=== PATIENT | female | born 1990 | race Caucasian/White ===

== ENCOUNTER 2018-04-07 23:31 | Emergency (ER) | payer OTHER ==
[~2018-04-07] VITALS: Ht 157.5 cm; Wt 45.5 kg
[2018-04-08 00:29] LABS: BASOPHILS % (AUTO) 0.7 % (0.0-2.0); EOSINOPHILS % (AUTO) 1.8 % (1.0-6.0); HEMATOCRIT 39.1 % (36-46); HEMOGLOBIN 13.2 g/dL (12.0-16.0); LYMPHOCYTES # (AUTO) 3.7 K/uL (1.0-4.8); LYMPHOCYTES % (AUTO) 33.1 % (22.0-44.0); MEAN CORPUSCULAR HGB CONC 33.7 G/dL (31.0-37.0); MEAN CORPUSCULAR VOLUME 86 fL (80-100); MONOCYTES # (AUTO) 0.9 K/uL (0.1-1.0); MONOCYTES % (AUTO) 7.7 % (2.0-9.0); NEUTROPHILS # (AUTO) 6.4 K/uL (1.8-7.7); NEUTROPHILS % (AUTO) 56.7 % (40.0-70.0); PLATELET COUNT (AUTO) 299 K/uL (150-450); RED BLOOD CELL COUNT(AUTO) 4.55 MIL/uL (4.00-5.20); RED CELL DISTRIBUTION WIDTH 13.1 % (11.5-14.5)
[2018-04-08 00:34] LABS: AMPHET/METH SCREEN,URINE NEGATIVE (NEGATIVE); BARBITURATE SCREEN, URINE NEGATIVE (NEGATIVE); BENZODIAZEPINES SCREEN,URINE NEGATIVE (NEGATIVE); CANNABINOID SCREEN,URINE NEGATIVE (NEGATIVE); COCAINE SCREEN,URINE NEGATIVE (NEGATIVE); METHADONE SCREEN, URINE NEGATIVE (NEGATIVE); OPIATE SCREEN,URINE NEGATIVE (NEGATIVE)
[2018-04-08 00:35] LABS: PHENCYCLIDINE SCREEN,URINE NEGATIVE (NEGATIVE)
[2018-04-08] MEDS ORDERED: HYDR-4031 PO (00:35)
[2018-04-08 00:36] LABS: ANION GAP 10 mmol/L (8-16); CALCIUM, TOTAL 8.8 mg/dL (8.8-10.5); CARBON DIOXIDE 27 mmol/L (22-29); CHLORIDE 101 mmol/L (98-107); CREATININE 0.69 mg/dL (0.60-1.30); GLOMERULAR FILTR. RATE CALC > 60 mL/min (>60); GLUCOSE,RANDOM 99 mg/dL (70-110); POTASSIUM 3.5 mmol/L (3.5-5.1); SODIUM SERUM 138 mmol/L (136-145); UREA NITROGEN, BLOOD 14 mg/dL (7-18)
[2018-04-08] MEDS ORDERED: SERT50TA12 PO (00:36)
[2018-04-08 00:42] LABS: ALANINE AMINOTRANSFERASE 18 U/L (12-78); ALBUMIN 4.1 g/dL (3.4-5.0); ALKALINE PHOSPHATASE 91 U/L (46-116); ASPARTATE AMINOTRANSFERASE 16 U/L (15-37); BILIRUBIN,TOTAL 0.3 mg/dL (0.1-1.0); TOTAL PROTEIN, SERUM 8.2 g/dL (6.4-8.2)
[2018-04-08] MEDS ORDERED: LORazepam 2 MG TABLET PO ONE (01:45)
[2018-04-08 02:30] VITALS: BP 117/68
== END 2018-04-08 02:50 | disposition home or self-care (01) ==
LOC: EMS 23:32
DX: Z72.811 Adult antisocial behavior (principal); R45.4 Irritability and anger; F32.9 Major depressive disorder, single episode, unspecified; Z79.899 Other long term (current) drug therapy
CPT/HCPCS: 36415; 80053; 80307; 84703; 85025; 99285; G0480

== ENCOUNTER 2019-05-03 19:37 | Inpatient (IN) | payer MEDICAID, OTHER ==
[~2019-05-03] VITALS: Ht 157.5 cm; Wt 45.9 kg
[~2019-05-03 19:37] MED LIST: HYDR-4031 PO; SERT50TA12 PO
[2019-05-03 21:40] LABS: BASOPHILS % (AUTO) 0.9 % (0.0-2.0); EOSINOPHILS % (AUTO) 0.9 % (1.0-6.0); HEMOGLOBIN 12.5 g/dL (12.0-16.0); LYMPHOCYTES # (AUTO) 3.8 K/uL (1.0-4.8); LYMPHOCYTES % (AUTO) 37.1 % (22.0-44.0); MEAN CORPUSCULAR HEMOGLOBIN 28.3 pg (26.0-34.0); MEAN CORPUSCULAR HGB CONC 32.8 G/dL (31.0-37.0); MEAN CORPUSCULAR VOLUME 86 fL (80-100); MONOCYTES # (AUTO) 0.7 K/uL (0.1-1.0); MONOCYTES % (AUTO) 6.8 % (2.0-9.0); NEUTROPHILS # (AUTO) 5.6 K/uL (1.8-7.7); NEUTROPHILS % (AUTO) 54.3 % (40.0-70.0); PLATELET COUNT (AUTO) 307 K/uL (150-450); RED BLOOD CELL COUNT(AUTO) 4.41 MIL/uL (4.00-5.20); RED CELL DISTRIBUTION WIDTH 13.7 % (11.5-14.5)
[2019-05-03 21:51] LABS: ANION GAP 10 mmol/L (8-16); CARBON DIOXIDE 26 mmol/L (22-29); CHLORIDE 103 mmol/L (98-107); CREATININE 0.61 mg/dL (0.60-1.30); GLOMERULAR FILTR. RATE CALC > 60 mL/min (>60); GLUCOSE,RANDOM 92 mg/dL (70-110); POTASSIUM 3.8 mmol/L (3.5-5.1); SODIUM SERUM 139 mmol/L (136-145); UREA NITROGEN, BLOOD 8 mg/dL (7-18)
[2019-05-03 22:00] LABS: ALANINE AMINOTRANSFERASE 10 U/L (12-78); ALBUMIN 4.3 g/dL (3.4-5.0); ALKALINE PHOSPHATASE 84 U/L (46-116); ASPARTATE AMINOTRANSFERASE 15 U/L (15-37); BILIRUBIN,TOTAL 0.3 mg/dL (0.1-1.0); TOTAL PROTEIN, SERUM 8.2 g/dL (6.4-8.2)
[2019-05-04] MEDS ORDERED: ZOLPIDEM TARTRATE 10 MG TABLET PO PRN
[2019-05-04] MEDS ORDERED: LORazepam 2 MG TABLET PO PRN
[2019-05-04] MEDS ORDERED: HALOPERIDOL 5 MG TABLET PO PRN
[2019-05-04 02:52] VITALS: BP 120/81
[2019-05-04 08:11] VITALS: BP 105/65
[2019-05-04 08:22] LABS: CHOL/HDL RATIO 2.5 (3.9-5.7)
[2019-05-04] MEDS ORDERED: ONDANSETRON HCL 4 MG TABLET PO PRN (10:00)
[2019-05-04] MEDS ORDERED: DOCUSATE SODIUM 100 MG CAPSULE PO PRN (10:00)
[2019-05-04] MEDS ORDERED: MAGNESIUM HYDROXIDE SUSPENSION 30 ML UDCUP PO PRN (10:00)
[2019-05-04] MEDS ORDERED: IBUPROFEN 400 MG TABLET PO PRN (10:00)
[2019-05-04] MEDS ORDERED: LOPERAMIDE HCL 2 MG CAPSULE PO PRN (10:00)
[2019-05-04] MEDS ORDERED: ACETAMINOPHEN 325 MG TABLET PO PRN (10:00)
[2019-05-04] MEDS ORDERED: MAG HYDROX/AL HYDROX/SIMETH ES 30 ML SUSPENSION UDCUP PO PRN (10:00)
[2019-05-04] MEDS ORDERED: NICOTINE 14 MG/24 HOUR PATCH TD PRN (10:00)
[2019-05-04] MEDS ORDERED: ALBUTEROL SULFATE HFA 90 MCG/PUFF 8 GM INHALER IH PRN (10:00)
[2019-05-04] MEDS ORDERED: CloNIDine HCL 0.1 MG TABLET PO PRN (10:00)
[2019-05-04] MEDS ORDERED: PETROLATUM,WHITE 28 GM JELLY TP PRN (10:00)
[2019-05-04] MEDS ORDERED: GuaiFENesin/D-METHORPHAN [SUGAR-FREE] 200-20MG/10 ML SYRUP UDCUP PO PRN (10:00)
[2019-05-04] MEDS: FLUoxetine HCL 20 MG CAPSULE PO SCH (11:29)
[2019-05-04 16:14] VITALS: BP 128/74
[2019-05-05 06:37] VITALS: BP 103/67
[2019-05-05 08:19] VITALS: BP 101/73
[2019-05-05] MEDS ORDERED: FLUO-191 PO (08:43)
[2019-05-05] MEDS: FLUoxetine HCL 20 MG CAPSULE PO SCH (08:56)
== END 2019-05-05 13:45 | disposition home or self-care (01) | DRG 751 ==
LOC: EMS 19:38 → B2S 05-04 00:30
PROVIDERS: ADMIT Psychiatry & Neurology Psychiatry; ATTEND Psychiatry & Neurology Psychiatry
DX: F33.2 Major depressive disorder, recurrent severe without psychotic features (principal); E46 Unspecified protein-calorie malnutrition; R45.851 Suicidal ideations; F10.10 Alcohol abuse, uncomplicated; F12.90 Cannabis use, unspecified, uncomplicated; Z68.1 Body mass index [BMI] 19.9 or less, adult
CPT/HCPCS: G0480

== ENCOUNTER 2020-06-04 15:53 | Inpatient (IN) | payer MEDICAID, OTHER ==
[~2020-06-04] VITALS: Ht 157.5 cm; Wt 47.9 kg
[~2020-06-04 15:53] MED LIST changes: +FLUO-191 PO; -HYDR-4031 PO; -SERT50TA12 PO
[2020-06-04 19:49] LABS: BASOPHILS % (AUTO) 0.6 % (0.0-2.0); HEMATOCRIT 35.4 % (36-46); HEMOGLOBIN 12.1 g/dL (12.0-16.0); LYMPHOCYTES # (AUTO) 4.5 K/uL (1.0-4.8); LYMPHOCYTES % (AUTO) 41.7 % (22.0-44.0); MEAN CORPUSCULAR HEMOGLOBIN 29.1 pg (26.0-34.0); MEAN CORPUSCULAR HGB CONC 34.2 G/dL (31.0-37.0); MEAN CORPUSCULAR VOLUME 85 fL (80-100); MONOCYTES # (AUTO) 0.8 K/uL (0.1-1.0); MONOCYTES % (AUTO) 7.4 % (2.0-9.0); NEUTROPHILS # (AUTO) 5.4 K/uL (1.8-7.7); NEUTROPHILS % (AUTO) 49.3 % (40.0-70.0); PLATELET COUNT (AUTO) 309 K/uL (150-450); RED BLOOD CELL COUNT(AUTO) 4.16 MIL/uL (4.00-5.20); RED CELL DISTRIBUTION WIDTH 13.7 % (11.5-14.5)
[2020-06-04 20:29] LABS: ALANINE AMINOTRANSFERASE 15 U/L (12-78); ALBUMIN 4.1 g/dL (3.4-5.0); ALKALINE PHOSPHATASE 68 U/L (46-116); ANION GAP 12 mmol/L (8-16); ASPARTATE AMINOTRANSFERASE 14 U/L (15-37); BILIRUBIN,TOTAL 0.2 mg/dL (0.1-1.0); CALCIUM, TOTAL 9.2 mg/dL (8.8-10.5); CARBON DIOXIDE 25 mmol/L (22-29); CHLORIDE 103 mmol/L (98-107); CREATININE 0.64 mg/dL (0.60-1.30); GLOMERULAR FILTR. RATE CALC > 60 mL/min (>60); HCG,QUANTITATIVE < 1 mIU/mL (0-6); POTASSIUM 3.3 mmol/L (3.5-5.1); SODIUM SERUM 140 mmol/L (136-145); TOTAL PROTEIN, SERUM 7.5 g/dL (6.4-8.2); UREA NITROGEN, BLOOD 8 mg/dL (7-18)
[2020-06-04] MEDS ORDERED: ZOLPIDEM TARTRATE 10 MG TABLET PO PRN (20:30)
[2020-06-04] MEDS ORDERED: LORazepam 2 MG TABLET PO PRN (20:30)
[2020-06-04] MEDS ORDERED: HALOPERIDOL 5 MG TABLET PO PRN (20:30)
[2020-06-04 20:42] LABS: GLUCOSE,RANDOM 91 mg/dL (70-110)
[2020-06-04 20:47] LABS: COVID AG,FIA SOURCE NASOPHARYNGEAL
[2020-06-05 03:07] VITALS: BP 107/68
[2020-06-05] MEDS ORDERED: INFLUENZA VIRUS VACCINE QVS 2020-21 (6MO+)/PF 60 MCG/0.5 ML SYRINGE IM ONE (04:00)
[2020-06-05] MEDS ORDERED: ALBUTEROL SULFATE HFA 90 MCG/PUFF 8 GM INHALER IH PRN (07:45)
[2020-06-05] MEDS ORDERED: CloNIDine HCL 0.1 MG TABLET PO PRN (07:45)
[2020-06-05] MEDS ORDERED: ACETAMINOPHEN 325 MG TABLET PO PRN (07:45)
[2020-06-05] MEDS ORDERED: POTASSIUM CHLORIDE 20 MEQ ER TABLET PO ONE (07:45)
[2020-06-05] MEDS ORDERED: MAGNESIUM HYDROXIDE SUSPENSION 30 ML UDCUP PO PRN (07:45)
[2020-06-05] MEDS ORDERED: IBUPROFEN 400 MG TABLET PO PRN (07:45)
[2020-06-05] MEDS ORDERED: LOPERAMIDE HCL 2 MG CAPSULE PO PRN (07:45)
[2020-06-05] MEDS ORDERED: NICOTINE 14 MG/24 HOUR PATCH TD PRN (07:45)
[2020-06-05] MEDS ORDERED: DOCUSATE SODIUM 100 MG CAPSULE PO PRN (07:45)
[2020-06-05] MEDS ORDERED: GuaiFENesin/D-METHORPHAN [SUGAR-FREE] 200-20MG/10 ML SYRUP UDCUP PO PRN (07:45)
[2020-06-05] MEDS ORDERED: ONDANSETRON HCL 4 MG TABLET PO PRN (07:45)
[2020-06-05] MEDS ORDERED: MAG HYDROX/AL HYDROX/SIMETH ES 30 ML SUSPENSION UDCUP PO PRN (07:45)
[2020-06-05] MEDS ORDERED: PETROLATUM,WHITE 28 GM JELLY TP PRN (07:45)
[2020-06-05 08:20] VITALS: BP 112/74
[2020-06-05 08:20] LABS: CHOL/HDL RATIO 3.4 (3.9-5.7)
[2020-06-05] MEDS: FLUoxetine HCL 20 MG CAPSULE PO SCH (13:04)
[2020-06-05 16:03] VITALS: BP 98/60
[2020-06-05] MEDS: QUEtiapine FUMARATE 25 MG TABLET PO SCH (17:05)
[2020-06-06 00:58] VITALS: BP 101/69
[2020-06-06 08:20] VITALS: BP 102/70
[2020-06-06] MEDS: QUEtiapine FUMARATE 25 MG TABLET PO SCH ×2 (08:27→16:08)
[2020-06-06] MEDS: FLUoxetine HCL 20 MG CAPSULE PO SCH (08:27)
[2020-06-06 16:07] VITALS: BP 102/61
[2020-06-07 00:09] VITALS: BP 101/68
[2020-06-07 08:23] VITALS: BP 100/67
[2020-06-07] MEDS: QUEtiapine FUMARATE 25 MG TABLET PO SCH ×2 (08:46→16:02)
[2020-06-07] MEDS: FLUoxetine HCL 20 MG CAPSULE PO SCH (08:46)
[2020-06-07 16:06] VITALS: BP 100/63
[2020-06-08 01:11] VITALS: BP 104/66
[2020-06-08 08:04] VITALS: BP 121/68
[2020-06-08] MEDS: QUEtiapine FUMARATE 25 MG TABLET PO SCH ×2 (08:19→17:24)
[2020-06-08] MEDS: FLUoxetine HCL 20 MG CAPSULE PO SCH (08:19)
[2020-06-08 17:03] VITALS: BP 108/68
[2020-06-09 05:44] VITALS: BP 103/64
[2020-06-09] MEDS: FLUoxetine HCL 20 MG CAPSULE PO SCH (08:10)
[2020-06-09] MEDS: QUEtiapine FUMARATE 25 MG TABLET PO SCH ×2 (08:11→16:15)
[2020-06-09 08:22] VITALS: BP 116/72
[2020-06-09 16:08] VITALS: BP 96/62
[2020-06-10 01:19] VITALS: BP 101/77
[2020-06-10] MEDS: QUEtiapine FUMARATE 25 MG TABLET PO SCH ×2 (08:09→16:16)
[2020-06-10] MEDS: FLUoxetine HCL 20 MG CAPSULE PO SCH (08:10)
[2020-06-10 08:12] VITALS: BP 100/61
[2020-06-10 16:12] VITALS: BP 98/60
[2020-06-11 00:39] VITALS: BP 101/68
[2020-06-11] MEDS: QUEtiapine FUMARATE 25 MG TABLET PO SCH ×2 (08:27→16:46)
[2020-06-11] MEDS: FLUoxetine HCL 20 MG CAPSULE PO SCH (08:27)
[2020-06-11 08:29] VITALS: BP 106/71
[2020-06-11] MEDS ORDERED: QUET25TA PO (14:51)
[2020-06-11 16:03] VITALS: BP 101/68
== END 2020-06-11 16:40 | disposition home or self-care (01) | DRG 753 ==
LOC: EMS 15:54 → EDBD 15:54 → B3A 20:20
PROVIDERS: ADMIT Psychiatry & Neurology Child & Adolescent Psychiatry; ATTEND Psychiatry & Neurology Child & Adolescent Psychiatry
DX: F31.2 Bipolar disorder, current episode manic severe with psychotic features (principal); F41.9 Anxiety disorder, unspecified; F17.200 Nicotine dependence, unspecified, uncomplicated; E46 Unspecified protein-calorie malnutrition; D64.9 Anemia, unspecified; E87.6 Hypokalemia; Z68.1 Body mass index [BMI] 19.9 or less, adult; F12.90 Cannabis use, unspecified, uncomplicated; Z59.0 Homelessness; Z20.828 Contact with and (suspected) exposure to other viral communicable diseases; Z28.21 Immunization not carried out because of patient refusal
CPT/HCPCS: 84132; 87426; G0480

== ENCOUNTER 2020-07-24 16:59 | Inpatient (IN) | payer MEDICAID, OTHER ==
[~2020-07-24] VITALS: Ht 157.5 cm; Wt 48.6 kg
[~2020-07-24 16:59] MED LIST changes: +QUET25TA PO
[2020-07-24 21:49] LABS: BASOPHILS % (AUTO) 0.5 % (0.0-2.0); EOSINOPHILS % (AUTO) 1.2 % (1.0-6.0); HEMATOCRIT 32.2 % (36-46); HEMOGLOBIN 10.5 g/dL (12.0-16.0); LYMPHOCYTES # (AUTO) 5.1 K/uL (1.0-4.8); LYMPHOCYTES % (AUTO) 38.6 % (22.0-44.0); MEAN CORPUSCULAR HEMOGLOBIN 27.7 pg (26.0-34.0); MEAN CORPUSCULAR HGB CONC 32.5 G/dL (31.0-37.0); MEAN CORPUSCULAR VOLUME 85 fL (80-100); MONOCYTES # (AUTO) 0.9 K/uL (0.1-1.0); NEUTROPHILS # (AUTO) 6.9 K/uL (1.8-7.7); NEUTROPHILS % (AUTO) 52.7 % (40.0-70.0); PLATELET COUNT (AUTO) 312 K/uL (150-450); RED BLOOD CELL COUNT(AUTO) 3.77 MIL/uL (4.00-5.20); RED CELL DISTRIBUTION WIDTH 14.6 % (11.5-14.5)
[2020-07-24 21:59] LABS: COVID AG,FIA SOURCE NASOPHARYNGEAL
[2020-07-24 22:02] LABS: ANION GAP 6 mmol/L (8-16); CALCIUM, TOTAL 8.3 mg/dL (8.8-10.5); CARBON DIOXIDE 25 mmol/L (22-29); CHLORIDE 103 mmol/L (98-107); CREATININE 0.66 mg/dL (0.60-1.30); GLOMERULAR FILTR. RATE CALC > 60 mL/min (>60); GLUCOSE,RANDOM 100 mg/dL (70-110); POTASSIUM 3.3 mmol/L (3.5-5.1); SODIUM SERUM 134 mmol/L (136-145); UREA NITROGEN, BLOOD 11 mg/dL (7-18)
[2020-07-24 22:08] LABS: ALANINE AMINOTRANSFERASE 22 U/L (12-78); ALBUMIN 3.7 g/dL (3.4-5.0); ALKALINE PHOSPHATASE 80 U/L (46-116); ASPARTATE AMINOTRANSFERASE 23 U/L (15-37); BILIRUBIN,TOTAL 0.2 mg/dL (0.1-1.0); TOTAL PROTEIN, SERUM 7.6 g/dL (6.4-8.2)
[2020-07-24] MEDS ORDERED: HALOPERIDOL 5 MG TABLET PO PRN (22:45)
[2020-07-24] MEDS ORDERED: ZOLPIDEM TARTRATE 10 MG TABLET PO PRN (22:45)
[2020-07-24] MEDS ORDERED: POTASSIUM CHLORIDE 20 MEQ ER TABLET PO ONE (23:00)
[2020-07-25 00:14] LABS: AMPHET/METH SCREEN,URINE NEGATIVE (NEGATIVE); BARBITURATE SCREEN, URINE NEGATIVE (NEGATIVE); BENZODIAZEPINES SCREEN,URINE NEGATIVE (NEGATIVE); CANNABINOID SCREEN,URINE NEGATIVE (NEGATIVE); COCAINE SCREEN,URINE NEGATIVE (NEGATIVE); METHADONE SCREEN, URINE NEGATIVE (NEGATIVE); OPIATE SCREEN,URINE NEGATIVE (NEGATIVE)
[2020-07-25 00:27] LABS: PHENCYCLIDINE SCREEN,URINE NEGATIVE (NEGATIVE)
[2020-07-25 01:18] VITALS: BP 119/80
[2020-07-25] MEDS ORDERED: INFLUENZA VIRUS VACCINE QVS 2020-21 (6MO+)/PF 60 MCG/0.5 ML SYRINGE IM ONE (03:00)
[2020-07-25] MEDS ORDERED: MAGNESIUM HYDROXIDE SUSPENSION 30 ML UDCUP PO PRN (07:15)
[2020-07-25] MEDS ORDERED: NICOTINE 14 MG/24 HOUR PATCH TD PRN (07:15)
[2020-07-25] MEDS ORDERED: CloNIDine HCL 0.1 MG TABLET PO PRN (07:15)
[2020-07-25] MEDS ORDERED: ACETAMINOPHEN 325 MG TABLET PO PRN (07:15)
[2020-07-25] MEDS ORDERED: DOCUSATE SODIUM 100 MG CAPSULE PO PRN (07:15)
[2020-07-25] MEDS ORDERED: LOPERAMIDE HCL 2 MG CAPSULE PO PRN (07:15)
[2020-07-25] MEDS ORDERED: IBUPROFEN 400 MG TABLET PO PRN (07:15)
[2020-07-25] MEDS ORDERED: PETROLATUM,WHITE 28 GM JELLY TP PRN (07:15)
[2020-07-25] MEDS ORDERED: GuaiFENesin/D-METHORPHAN [SUGAR-FREE] 200-20MG/10 ML SYRUP UDCUP PO PRN (07:15)
[2020-07-25] MEDS ORDERED: ONDANSETRON HCL 4 MG TABLET PO PRN (07:15)
[2020-07-25] MEDS ORDERED: ALBUTEROL SULFATE HFA 90 MCG/PUFF 8 GM INHALER IH PRN (07:15)
[2020-07-25] MEDS ORDERED: MAG HYDROX/AL HYDROX/SIMETH ES 30 ML SUSPENSION UDCUP PO PRN (07:15)
[2020-07-25 08:16] VITALS: BP 118/62
[2020-07-25] MEDS: LORazepam 2 MG TABLET PO PRN (12:37)
[2020-07-25 16:14] VITALS: BP 100/65
[2020-07-25] MEDS: QUEtiapine FUMARATE 25 MG TABLET PO SCH (16:57)
[2020-07-26 00:45] VITALS: BP 108/73
[2020-07-26 08:21] VITALS: BP 100/69
[2020-07-26] MEDS: FLUoxetine HCL 20 MG CAPSULE PO SCH (08:49)
[2020-07-26] MEDS: QUEtiapine FUMARATE 25 MG TABLET PO SCH ×2 (08:50→17:00)
[2020-07-26 09:00] VITALS: BP 112/74
[2020-07-26 09:00] LABS: CHOL/HDL RATIO 3.5 (3.9-5.7); POTASSIUM 3.9 mmol/L (3.5-5.1)
[2020-07-26] MEDS: LORazepam 2 MG TABLET PO PRN (09:04)
[2020-07-26 16:15] VITALS: BP 116/70
[2020-07-27 06:11] VITALS: BP 112/76
[2020-07-27] MEDS: QUEtiapine FUMARATE 25 MG TABLET PO SCH ×2 (08:19→16:26)
[2020-07-27] MEDS: FLUoxetine HCL 20 MG CAPSULE PO SCH (08:19)
[2020-07-27 08:20] VITALS: BP 100/60
[2020-07-27 08:30] LABS: BASOPHILS % (AUTO) 0.4 % (0.0-2.0); EOSINOPHILS % (AUTO) 2.3 % (1.0-6.0); HEMATOCRIT 31.1 % (36-46); HEMOGLOBIN 10.2 g/dL (12.0-16.0); LYMPHOCYTES # (AUTO) 2.9 K/uL (1.0-4.8); LYMPHOCYTES % (AUTO) 38.1 % (22.0-44.0); MEAN CORPUSCULAR HEMOGLOBIN 28.5 pg (26.0-34.0); MEAN CORPUSCULAR HGB CONC 32.9 G/dL (31.0-37.0); MEAN CORPUSCULAR VOLUME 87 fL (80-100); MONOCYTES # (AUTO) 0.6 K/uL (0.1-1.0); NEUTROPHILS # (AUTO) 3.9 K/uL (1.8-7.7); NEUTROPHILS % (AUTO) 51.2 % (40.0-70.0); PLATELET COUNT (AUTO) 247 K/uL (150-450); RED CELL DISTRIBUTION WIDTH 14.4 % (11.5-14.5)
[2020-07-27] MEDS: LORazepam 2 MG TABLET PO PRN (08:44)
[2020-07-27 16:15] VITALS: BP 109/72
[2020-07-28 01:41] VITALS: BP 118/78
[2020-07-28] MEDS: QUEtiapine FUMARATE 25 MG TABLET PO SCH ×2 (08:54→16:39)
[2020-07-28] MEDS: FLUoxetine HCL 20 MG CAPSULE PO SCH (08:54)
[2020-07-28 10:20] VITALS: BP 109/79
[2020-07-28 16:11] VITALS: BP 114/75
[2020-07-29 08:22] VITALS: BP 110/69
[2020-07-29] MEDS: FLUoxetine HCL 20 MG CAPSULE PO SCH (08:26)
[2020-07-29] MEDS: QUEtiapine FUMARATE 25 MG TABLET PO SCH ×2 (08:26→16:51)
[2020-07-29 16:20] VITALS: BP 100/56
[2020-07-30 06:58] VITALS: BP 114/78
[2020-07-30 08:35] VITALS: BP 103/68
[2020-07-30] MEDS: FLUoxetine HCL 20 MG CAPSULE PO SCH (08:49)
[2020-07-30] MEDS: QUEtiapine FUMARATE 25 MG TABLET PO SCH ×2 (08:49→16:46)
[2020-07-30 16:23] VITALS: BP 104/60
[2020-07-30] MEDS: LORazepam 2 MG TABLET PO PRN (16:46)
[2020-07-31 04:28] VITALS: BP 102/62
[2020-07-31 08:52] VITALS: BP 108/64
[2020-07-31] MEDS: MULTIVITAMINS, THERAPEUTIC TABLET PO SCH (08:56)
[2020-07-31] MEDS: QUEtiapine FUMARATE 100 MG TABLET PO SCH ×2 (08:58→20:22)
[2020-07-31] MEDS: FLUoxetine HCL 20 MG CAPSULE PO SCH (08:59)
[2020-07-31 09:00] VITALS: BP 114/74
[2020-07-31] MEDS: FOLIC ACID 1 MG TABLET PO SCH (09:00)
[2020-07-31] MEDS: THIAMINE 100 MG TABLET PO SCH (09:00)
[2020-07-31] MEDS: LORazepam 2 MG TABLET PO PRN (09:04)
[2020-07-31 17:48] VITALS: BP 92/62
[2020-08-01 06:40] VITALS: BP 98/70
[2020-08-01 08:40] VITALS: BP 100/64
[2020-08-01] MEDS: FOLIC ACID 1 MG TABLET PO SCH (09:01)
[2020-08-01] MEDS: QUEtiapine FUMARATE 100 MG TABLET PO SCH ×2 (09:01→20:14)
[2020-08-01] MEDS: FLUoxetine HCL 20 MG CAPSULE PO SCH (09:01)
[2020-08-01] MEDS: THIAMINE 100 MG TABLET PO SCH (09:01)
[2020-08-01] MEDS: MULTIVITAMINS, THERAPEUTIC TABLET PO SCH (09:01)
[2020-08-01 09:20] VITALS: BP 110/72
[2020-08-01] MEDS: LORazepam 2 MG TABLET PO PRN (09:28)
[2020-08-01 16:36] VITALS: BP 100/68
[2020-08-02 00:52] VITALS: BP 102/64
[2020-08-02 09:26] VITALS: BP 100/69
[2020-08-02] MEDS: THIAMINE 100 MG TABLET PO SCH (10:05)
[2020-08-02] MEDS: QUEtiapine FUMARATE 100 MG TABLET PO SCH ×2 (10:05→20:16)
[2020-08-02] MEDS: MULTIVITAMINS, THERAPEUTIC TABLET PO SCH (10:05)
[2020-08-02] MEDS: FOLIC ACID 1 MG TABLET PO SCH (10:05)
[2020-08-02] MEDS: FLUoxetine HCL 20 MG CAPSULE PO SCH (10:06)
[2020-08-02 17:32] VITALS: BP 100/67
[2020-08-03 00:44] VITALS: BP 103/69
[2020-08-03 08:19] VITALS: BP 103/54
[2020-08-03] MEDS: FLUoxetine HCL 10 MG CAPSULE PO SCH (09:21)
[2020-08-03] MEDS: THIAMINE 100 MG TABLET PO SCH (09:21)
[2020-08-03] MEDS: MULTIVITAMINS, THERAPEUTIC TABLET PO SCH (09:21)
[2020-08-03] MEDS: QUEtiapine FUMARATE 100 MG TABLET PO SCH ×2 (09:21→20:26)
[2020-08-03] MEDS: LORazepam 2 MG TABLET PO PRN ×2 (09:21→16:27)
[2020-08-03] MEDS: FOLIC ACID 1 MG TABLET PO SCH (09:21)
[2020-08-03 16:50] VITALS: BP 101/62
[2020-08-04 01:17] VITALS: BP 100/74
[2020-08-04 08:29] VITALS: BP 110/66
[2020-08-04] MEDS: LORazepam 2 MG TABLET PO PRN ×2 (08:42→16:46)
[2020-08-04] MEDS: FOLIC ACID 1 MG TABLET PO SCH (08:42)
[2020-08-04] MEDS: QUEtiapine FUMARATE 100 MG TABLET PO SCH ×2 (08:42→20:48)
[2020-08-04] MEDS: THIAMINE 100 MG TABLET PO SCH (08:42)
[2020-08-04] MEDS: MULTIVITAMINS, THERAPEUTIC TABLET PO SCH (08:42)
[2020-08-04] MEDS: FLUoxetine HCL 10 MG CAPSULE PO SCH (08:43)
[2020-08-04 17:01] VITALS: BP 103/62
[2020-08-05 03:38] VITALS: BP 102/63
[2020-08-05 08:10] VITALS: BP 100/55
[2020-08-05] MEDS: THIAMINE 100 MG TABLET PO SCH (08:23)
[2020-08-05] MEDS: FOLIC ACID 1 MG TABLET PO SCH (08:23)
[2020-08-05] MEDS: MULTIVITAMINS, THERAPEUTIC TABLET PO SCH (08:24)
[2020-08-05] MEDS: QUEtiapine FUMARATE 100 MG TABLET PO SCH ×2 (08:24→20:31)
[2020-08-05] MEDS: FLUoxetine HCL 10 MG CAPSULE PO SCH (08:24)
[2020-08-05 09:30] VITALS: BP 114/72
[2020-08-05 16:05] VITALS: BP 102/60
[2020-08-05] MEDS: LORazepam 2 MG TABLET PO PRN (16:20)
[2020-08-06 01:56] VITALS: BP 100/77
[2020-08-06 08:21] VITALS: BP 100/50
[2020-08-06] MEDS: FLUoxetine HCL 10 MG CAPSULE PO SCH (08:35)
[2020-08-06] MEDS: THIAMINE 100 MG TABLET PO SCH (08:35)
[2020-08-06] MEDS: MULTIVITAMINS, THERAPEUTIC TABLET PO SCH (08:35)
[2020-08-06] MEDS: FOLIC ACID 1 MG TABLET PO SCH (08:35)
[2020-08-06] MEDS: QUEtiapine FUMARATE 100 MG TABLET PO SCH ×2 (08:35→20:33)
[2020-08-06 09:30] VITALS: BP 108/72
[2020-08-06 16:12] VITALS: BP 101/63
[2020-08-07 05:12] VITALS: BP 105/59
[2020-08-07 08:06] VITALS: BP 118/73
[2020-08-07] MEDS: MULTIVITAMINS, THERAPEUTIC TABLET PO SCH (08:28)
[2020-08-07] MEDS: THIAMINE 100 MG TABLET PO SCH (08:28)
[2020-08-07] MEDS: FOLIC ACID 1 MG TABLET PO SCH (08:28)
[2020-08-07] MEDS: QUEtiapine FUMARATE 100 MG TABLET PO SCH (08:28)
[2020-08-07] MEDS: FLUoxetine HCL 10 MG CAPSULE PO SCH (08:31)
[2020-08-07] MEDS ORDERED: PROZ10 PO (08:52)
[2020-08-07] MEDS ORDERED: QUET100T PO (08:53)
== END 2020-08-07 15:24 | disposition home or self-care (01) | DRG 753 ==
LOC: EMS 16:59 → B3A 22:35
PROVIDERS: ADMIT Psychiatry & Neurology Child & Adolescent Psychiatry; ATTEND Psychiatry & Neurology Child & Adolescent Psychiatry
DX: F31.5 Bipolar disorder, current episode depressed, severe, with psychotic features (principal); R45.851 Suicidal ideations; R45.850 Homicidal ideations; F79 Unspecified intellectual disabilities; Z79.899 Other long term (current) drug therapy; Z87.891 Personal history of nicotine dependence; Z91.14 Patient's other noncompliance with medication regimen; E87.1 Hypo-osmolality and hyponatremia; D64.9 Anemia, unspecified; D72.829 Elevated white blood cell count, unspecified; E87.6 Hypokalemia; Z20.828 Contact with and (suspected) exposure to other viral communicable diseases; Z53.20 Procedure and treatment not carried out because of patient's decision for unspecified reasons
CPT/HCPCS: 84132; 87426; G0480

== ENCOUNTER 2020-08-15 14:10 | Inpatient (IN) | payer MEDICAID, OTHER ==
[~2020-08-15] VITALS: Ht 157.5 cm; Wt 47.2 kg
[~2020-08-15 14:10] MED LIST changes: -FLUO-191 PO; +PROZ10 PO; +QUET100T PO; -QUET25TA PO
[2020-08-15] MEDS ORDERED: LORazepam 2 MG/ML VIAL IM ONE ×2 (17:30→23:15)
[2020-08-15] MEDS ORDERED: HALOPERIDOL LACTATE 5 MG/ML VIAL IM ONE (17:30)
[2020-08-15] MEDS ORDERED: DiphenhydrAMINE HCL 50 MG/ML VIAL IM ONE (17:30)
[2020-08-15 18:00] LABS: COVID AG,FIA SOURCE NASOPHARYNGEAL
[2020-08-15 18:02] LABS: BASOPHILS % (AUTO) 0.4 % (0.0-2.0); EOSINOPHILS % (AUTO) 0.3 % (1.0-6.0); HEMATOCRIT 34.2 % (36-46); HEMOGLOBIN 11.2 g/dL (12.0-16.0); LYMPHOCYTES # (AUTO) 4.1 K/uL (1.0-4.8); MEAN CORPUSCULAR HEMOGLOBIN 27.8 pg (26.0-34.0); MEAN CORPUSCULAR HGB CONC 32.6 G/dL (31.0-37.0); MEAN CORPUSCULAR VOLUME 85 fL (80-100); MONOCYTES # (AUTO) 0.6 K/uL (0.1-1.0); MONOCYTES % (AUTO) 4.7 % (2.0-9.0); NEUTROPHILS # (AUTO) 8.4 K/uL (1.8-7.7); NEUTROPHILS % (AUTO) 63.6 % (40.0-70.0); PLATELET COUNT (AUTO) 356 K/uL (150-450); RED BLOOD CELL COUNT(AUTO) 4.02 MIL/uL (4.00-5.20); RED CELL DISTRIBUTION WIDTH 14.6 % (11.5-14.5)
[2020-08-15 18:10] LABS: ANION GAP 14 mmol/L (8-16); CARBON DIOXIDE 24 mmol/L (22-29); CHLORIDE 102 mmol/L (98-107); CREATININE 0.64 mg/dL (0.60-1.30); GLOMERULAR FILTR. RATE CALC > 60 mL/min (>60); GLUCOSE,RANDOM 93 mg/dL (70-110); POTASSIUM 3.7 mmol/L (3.5-5.1); SODIUM SERUM 140 mmol/L (136-145); UREA NITROGEN, BLOOD 13 mg/dL (7-18)
[2020-08-15 18:23] LABS: ALANINE AMINOTRANSFERASE 19 U/L (12-78); ALBUMIN 4.1 g/dL (3.4-5.0); ALKALINE PHOSPHATASE 77 U/L (46-116); ASPARTATE AMINOTRANSFERASE 17 U/L (15-37); BILIRUBIN,TOTAL 0.2 mg/dL (0.1-1.0); TOTAL PROTEIN, SERUM 8.2 g/dL (6.4-8.2)
[2020-08-15] MEDS ORDERED: ZOLPIDEM TARTRATE 10 MG TABLET PO PRN (19:15)
[2020-08-15] MEDS ORDERED: HALOPERIDOL 5 MG TABLET PO PRN (19:15)
[2020-08-15] MEDS ORDERED: HALOPERIDOL LACTATE 5 MG/ML VIAL IM SCH (23:15)
[2020-08-15] MEDS ORDERED: DiphenhydrAMINE HCL 50 MG/ML VIAL IM SCH (23:15)
[2020-08-16] MEDS ORDERED: PNEUMOCOCCAL VACCINE POLYVALENT 0.5 ML VIAL [PPSV23] IM ONE (03:45)
[2020-08-16] MEDS ORDERED: INFLUENZA VIRUS VACCINE QVS 2020-21 (6MO+)/PF 60 MCG/0.5 ML SYRINGE IM ONE (03:45)
[2020-08-16 04:32] VITALS: BP 116/76
[2020-08-16 08:30] VITALS: BP 121/79
[2020-08-16] MEDS: FLUoxetine HCL 20 MG CAPSULE PO SCH (12:27)
[2020-08-16] MEDS: QUEtiapine FUMARATE 100 MG TABLET PO SCH ×2 (12:27→20:53)
[2020-08-16 16:15] VITALS: BP 118/79
[2020-08-16] MEDS ORDERED: GuaiFENesin/D-METHORPHAN [SUGAR-FREE] 200-20MG/10 ML SYRUP UDCUP PO PRN (17:15)
[2020-08-16] MEDS ORDERED: CloNIDine HCL 0.1 MG TABLET PO PRN (17:15)
[2020-08-16] MEDS ORDERED: MAGNESIUM HYDROXIDE SUSPENSION 30 ML UDCUP PO PRN (17:15)
[2020-08-16] MEDS ORDERED: ACETAMINOPHEN 325 MG TABLET PO PRN (17:15)
[2020-08-16] MEDS ORDERED: DOCUSATE SODIUM 100 MG CAPSULE PO PRN (17:15)
[2020-08-16] MEDS ORDERED: ONDANSETRON HCL 4 MG TABLET PO PRN (17:15)
[2020-08-16] MEDS ORDERED: ALBUTEROL SULFATE HFA 90 MCG/PUFF 8 GM INHALER IH PRN (17:15)
[2020-08-16] MEDS ORDERED: MAG HYDROX/AL HYDROX/SIMETH ES 30 ML SUSPENSION UDCUP PO PRN (17:15)
[2020-08-16] MEDS ORDERED: IBUPROFEN 400 MG TABLET PO PRN (17:15)
[2020-08-16] MEDS ORDERED: LOPERAMIDE HCL 2 MG CAPSULE PO PRN (17:15)
[2020-08-16] MEDS ORDERED: NICOTINE 14 MG/24 HOUR PATCH TD PRN (17:15)
[2020-08-16] MEDS ORDERED: PETROLATUM,WHITE 28 GM JELLY TP PRN (17:15)
[2020-08-17 04:56] VITALS: BP 105/82
[2020-08-17] MEDS: QUEtiapine FUMARATE 100 MG TABLET PO SCH ×2 (08:28→20:07)
[2020-08-17] MEDS: FLUoxetine HCL 20 MG CAPSULE PO SCH (08:28)
[2020-08-17 08:35] VITALS: BP 113/85
[2020-08-17 16:04] VITALS: BP 109/76
[2020-08-18 03:34] VITALS: BP 103/68
[2020-08-18] MEDS: QUEtiapine FUMARATE 100 MG TABLET PO SCH ×2 (08:10→20:04)
[2020-08-18] MEDS: FLUoxetine HCL 20 MG CAPSULE PO SCH (08:11)
[2020-08-18 08:22] VITALS: BP 102/67
[2020-08-18] MEDS: LORazepam 2 MG TABLET PO PRN (14:17)
[2020-08-18 16:14] VITALS: BP 98/63
[2020-08-19 06:34] VITALS: BP 116/73
[2020-08-19] MEDS: LORazepam 2 MG TABLET PO PRN (08:11)
[2020-08-19] MEDS: QUEtiapine FUMARATE 100 MG TABLET PO SCH (08:11)
[2020-08-19] MEDS: FLUoxetine HCL 20 MG CAPSULE PO SCH (08:11)
[2020-08-19 08:21] VITALS: BP 115/73
[2020-08-19 17:01] VITALS: BP 104/64
== END 2020-08-19 21:34 | disposition home or self-care (01) | DRG 753 ==
LOC: EMS 14:10 → B3A 19:32
PROVIDERS: ADMIT Psychiatry & Neurology Child & Adolescent Psychiatry; ATTEND Psychiatry & Neurology Child & Adolescent Psychiatry
DX: F31.2 Bipolar disorder, current episode manic severe with psychotic features (principal); F17.210 Nicotine dependence, cigarettes, uncomplicated; F14.90 Cocaine use, unspecified, uncomplicated; F10.10 Alcohol abuse, uncomplicated; D64.9 Anemia, unspecified; D72.829 Elevated white blood cell count, unspecified; Z20.822 Contact with and (suspected) exposure to COVID-19
CPT/HCPCS: 87081; 87426; G0480

== ENCOUNTER 2020-09-14 20:50 | Inpatient (IN) | payer MEDICAID, OTHER ==
[~2020-09-14] VITALS: Ht 157.5 cm; Wt 47.7 kg
[2020-09-14 22:26] LABS: AMPHET/METH SCREEN,URINE NEGATIVE (NEGATIVE); BARBITURATE SCREEN, URINE NEGATIVE (NEGATIVE); BENZODIAZEPINES SCREEN,URINE NEGATIVE (NEGATIVE); CANNABINOID SCREEN,URINE NEGATIVE (NEGATIVE); COCAINE SCREEN,URINE NEGATIVE (NEGATIVE); METHADONE SCREEN, URINE NEGATIVE (NEGATIVE); OPIATE SCREEN,URINE NEGATIVE (NEGATIVE)
[2020-09-14 22:27] LABS: PHENCYCLIDINE SCREEN,URINE NEGATIVE (NEGATIVE)
[2020-09-14 22:30] LABS: BASOPHILS % (AUTO) 0.8 % (0.0-2.0); EOSINOPHILS % (AUTO) 2.2 % (1.0-6.0); HEMATOCRIT 33.4 % (36-46); LYMPHOCYTES # (AUTO) 4.4 K/uL (1.0-4.8); LYMPHOCYTES % (AUTO) 48.2 % (22.0-44.0); MEAN CORPUSCULAR HGB CONC 32.8 G/dL (31.0-37.0); MEAN CORPUSCULAR VOLUME 85 fL (80-100); MONOCYTES # (AUTO) 0.5 K/uL (0.1-1.0); MONOCYTES % (AUTO) 5.6 % (2.0-9.0); NEUTROPHILS % (AUTO) 43.2 % (40.0-70.0); PLATELET COUNT (AUTO) 332 K/uL (150-450); RED BLOOD CELL COUNT(AUTO) 3.91 MIL/uL (4.00-5.20); RED CELL DISTRIBUTION WIDTH 13.5 % (11.5-14.5)
[2020-09-14 22:40] LABS: ANION GAP 10 mmol/L (8-16); CALCIUM, TOTAL 8.8 mg/dL (8.8-10.5); CARBON DIOXIDE 27 mmol/L (22-29); CHLORIDE 105 mmol/L (98-107); CREATININE 0.73 mg/dL (0.60-1.30); GLOMERULAR FILTR. RATE CALC > 60 mL/min (>60); GLUCOSE,RANDOM 58 mg/dL (70-110); POTASSIUM 3.3 mmol/L (3.5-5.1); SODIUM SERUM 142 mmol/L (136-145); UREA NITROGEN, BLOOD 12 mg/dL (7-18)
[2020-09-14] MEDS ORDERED: ZOLPIDEM TARTRATE 10 MG TABLET PO PRN (22:45)
[2020-09-14] MEDS ORDERED: HALOPERIDOL 5 MG TABLET PO PRN (22:45)
[2020-09-14] MEDS ORDERED: LORazepam 2 MG TABLET PO PRN (22:45)
[2020-09-14 22:52] LABS: ALANINE AMINOTRANSFERASE 16 U/L (12-78); ALBUMIN 3.8 g/dL (3.4-5.0); ALKALINE PHOSPHATASE 89 U/L (46-116); ASPARTATE AMINOTRANSFERASE 14 U/L (15-37); BILIRUBIN,TOTAL 0.2 mg/dL (0.1-1.0); HCG,QUANTITATIVE < 1 mIU/mL (0-6); TOTAL PROTEIN, SERUM 7.5 g/dL (6.4-8.2)
[2020-09-14 23:59] LABS: COVID AG,FIA SOURCE NASOPHARYNGEAL
[2020-09-15] MEDS ORDERED: POTASSIUM CHLORIDE 20 MEQ ER TABLET PO ONE (00:45)
[2020-09-15] MEDS ORDERED: INFLUENZA VIRUS VACCINE QVS 2020-21 (6MO+)/PF 60 MCG/0.5 ML SYRINGE IM ONE (02:30)
[2020-09-15 05:52] LABS: APPEARANCE,URINE CLOUDY (CLEAR); BILIRUBIN,URINE NEGATIVE (NEGATIVE); GLUCOSE, URINE (UA) NEGATIVE (NEGATIVE); KETONES,URINE NEGATIVE (NEGATIVE); LEUKOCYTE ESTERASE ,URINE NEGATIVE (NEGATIVE); NITRATE,URINE NEGATIVE (NEGATIVE); PH,URINE 5.5 (5.0-8.0); PROTEIN,URINE NEGATIVE (NEGATIVE); UROBILINOGEN,URINE 0.2 mg/dL (<=1.0)
[2020-09-15 06:10] LABS: CHOL/HDL RATIO 2.6 (3.9-5.7)
[2020-09-15 06:17] LABS: OCCULT BLOOD,URINE SMALL (NEGATIVE)
[2020-09-15 06:18] LABS: BACTERIA,URINE None Seen /HPF (None Seen); SQUAMOUS EPITHELIAL CELL,UR Moderate /LPF (None Seen)
[2020-09-15] MEDS ORDERED: ALBUTEROL SULFATE HFA 90 MCG/PUFF 8 GM INHALER IH PRN (08:45)
[2020-09-15] MEDS ORDERED: CloNIDine HCL 0.1 MG TABLET PO PRN (08:45)
[2020-09-15] MEDS ORDERED: IBUPROFEN 400 MG TABLET PO PRN (08:45)
[2020-09-15] MEDS ORDERED: GuaiFENesin/D-METHORPHAN [SUGAR-FREE] 200-20MG/10 ML SYRUP UDCUP PO PRN (08:45)
[2020-09-15] MEDS ORDERED: NICOTINE 14 MG/24 HOUR PATCH TD PRN (08:45)
[2020-09-15] MEDS ORDERED: MAG HYDROX/AL HYDROX/SIMETH ES 30 ML SUSPENSION UDCUP PO PRN (08:45)
[2020-09-15] MEDS ORDERED: MAGNESIUM HYDROXIDE SUSPENSION 30 ML UDCUP PO PRN (08:45)
[2020-09-15] MEDS ORDERED: ONDANSETRON HCL 4 MG TABLET PO PRN (08:45)
[2020-09-15] MEDS ORDERED: DOCUSATE SODIUM 100 MG CAPSULE PO PRN (08:45)
[2020-09-15] MEDS ORDERED: PETROLATUM,WHITE 28 GM JELLY TP PRN (08:45)
[2020-09-15] MEDS ORDERED: LOPERAMIDE HCL 2 MG CAPSULE PO PRN (08:45)
[2020-09-15] MEDS ORDERED: ACETAMINOPHEN 325 MG TABLET PO PRN (08:45)
[2020-09-15] MEDS: QUEtiapine FUMARATE 100 MG TABLET PO SCH ×2 (11:56→21:37)
[2020-09-15] MEDS: FLUoxetine HCL 10 MG CAPSULE PO SCH (11:56)
[2020-09-15 18:02] VITALS: BP 104/65
[2020-09-16 08:00] VITALS: BP 140/88
[2020-09-16] MEDS: FLUoxetine HCL 10 MG CAPSULE PO SCH (08:11)
[2020-09-16] MEDS: QUEtiapine FUMARATE 100 MG TABLET PO SCH ×2 (08:11→20:23)
[2020-09-16 16:15] VITALS: BP 101/60
[2020-09-17 08:10] VITALS: BP 108/58
[2020-09-17] MEDS: FLUoxetine HCL 10 MG CAPSULE PO SCH (08:38)
[2020-09-17] MEDS: QUEtiapine FUMARATE 100 MG TABLET PO SCH ×2 (08:38→20:20)
[2020-09-17 16:30] VITALS: BP 90/64
[2020-09-18 08:29] VITALS: BP 103/64
[2020-09-18] MEDS: QUEtiapine FUMARATE 100 MG TABLET PO SCH ×2 (09:31→20:33)
[2020-09-18] MEDS: FLUoxetine HCL 10 MG CAPSULE PO SCH (09:32)
[2020-09-18 17:53] VITALS: BP 98/64
[2020-09-19 08:00] VITALS: BP 97/67
[2020-09-19] MEDS: FLUoxetine HCL 10 MG CAPSULE PO SCH (09:14)
[2020-09-19] MEDS: QUEtiapine FUMARATE 100 MG TABLET PO SCH ×2 (09:14→20:13)
[2020-09-19 18:45] VITALS: BP 100/62
[2020-09-20 08:00] VITALS: BP 90/60
[2020-09-20] MEDS: FLUoxetine HCL 10 MG CAPSULE PO SCH (08:15)
[2020-09-20] MEDS: QUEtiapine FUMARATE 100 MG TABLET PO SCH ×2 (08:15→20:19)
[2020-09-20 16:05] LABS: COVID AG,FIA SOURCE NASOPHARYNGEAL
[2020-09-20 18:49] VITALS: BP 92/66
[2020-09-21 08:00] VITALS: BP 96/64
[2020-09-21] MEDS: FLUoxetine HCL 10 MG CAPSULE PO SCH (08:25)
[2020-09-21] MEDS: QUEtiapine FUMARATE 100 MG TABLET PO SCH ×2 (08:25→20:25)
[2020-09-21 16:00] VITALS: BP 102/59
[2020-09-22 09:31] VITALS: BP 105/68
[2020-09-22] MEDS: FLUoxetine HCL 10 MG CAPSULE PO SCH (09:46)
[2020-09-22] MEDS: QUEtiapine FUMARATE 100 MG TABLET PO SCH ×2 (09:46→21:20)
[2020-09-22 16:36] VITALS: BP 95/61
[2020-09-23 08:00] VITALS: BP 85/53
[2020-09-23] MEDS: FLUoxetine HCL 10 MG CAPSULE PO SCH (10:14)
[2020-09-23] MEDS: QUEtiapine FUMARATE 100 MG TABLET PO SCH ×2 (10:14→20:17)
[2020-09-23 16:16] VITALS: BP 97/62
[2020-09-24] MEDS: FLUoxetine HCL 10 MG CAPSULE PO SCH (09:00)
[2020-09-24] MEDS: QUEtiapine FUMARATE 100 MG TABLET PO SCH ×2 (09:00→20:43)
[2020-09-24 16:10] VITALS: BP 109/74
[2020-09-25] MEDS: FLUoxetine HCL 10 MG CAPSULE PO SCH (08:16)
[2020-09-25] MEDS: QUEtiapine FUMARATE 100 MG TABLET PO SCH ×2 (08:16→20:23)
[2020-09-25 08:29] VITALS: BP 110/78
[2020-09-26 08:00] VITALS: BP 99/73
[2020-09-26] MEDS: QUEtiapine FUMARATE 100 MG TABLET PO SCH ×2 (09:06→20:37)
[2020-09-26] MEDS: FLUoxetine HCL 10 MG CAPSULE PO SCH (09:06)
[2020-09-26 20:00] VITALS: BP 95/49
[2020-09-27] MEDS: FLUoxetine HCL 10 MG CAPSULE PO SCH (07:51)
[2020-09-27] MEDS: QUEtiapine FUMARATE 100 MG TABLET PO SCH ×2 (07:51→20:47)
[2020-09-27 08:49] VITALS: BP 121/88
[2020-09-27 16:39] VITALS: BP 107/55
[2020-09-28 08:36] VITALS: BP 102/65
[2020-09-28] MEDS: FLUoxetine HCL 10 MG CAPSULE PO SCH (09:28)
[2020-09-28] MEDS: QUEtiapine FUMARATE 100 MG TABLET PO SCH ×2 (09:28→20:20)
[2020-09-28 15:15] LABS: COVID AG,FIA SOURCE NASOPHARYNGEAL
[2020-09-28 16:17] VITALS: BP 119/81
[2020-09-29 08:30] VITALS: BP 120/69
[2020-09-29] MEDS: FLUoxetine HCL 10 MG CAPSULE PO SCH (08:39)
[2020-09-29] MEDS: QUEtiapine FUMARATE 100 MG TABLET PO SCH ×2 (08:39→20:42)
[2020-09-29] MEDS: MULTIVITAMINS WITH MINERALS, THERAPEUTIC TABLET PO SCH (08:39)
[2020-09-29] MEDS: THIAMINE 100 MG TABLET PO SCH (08:39)
[2020-09-29 16:20] VITALS: BP 103/58
[2020-09-30] MEDS: MULTIVITAMINS WITH MINERALS, THERAPEUTIC TABLET PO SCH (08:35)
[2020-09-30] MEDS: QUEtiapine FUMARATE 100 MG TABLET PO SCH ×2 (08:35→20:39)
[2020-09-30] MEDS: FLUoxetine HCL 10 MG CAPSULE PO SCH (08:35)
[2020-09-30 08:37] VITALS: BP 116/72
[2020-09-30] MEDS: THIAMINE 100 MG TABLET PO SCH (08:41)
[2020-09-30 16:27] VITALS: BP 91/68
[2020-10-01 08:00] VITALS: BP 114/77
[2020-10-01] MEDS ORDERED: THIA100T80 PO (08:43)
[2020-10-01] MEDS: QUEtiapine FUMARATE 100 MG TABLET PO SCH (09:44)
[2020-10-01] MEDS: THIAMINE 100 MG TABLET PO SCH (09:44)
[2020-10-01] MEDS: MULTIVITAMINS WITH MINERALS, THERAPEUTIC TABLET PO SCH (09:44)
[2020-10-01] MEDS: FLUoxetine HCL 10 MG CAPSULE PO SCH (09:44)
== END 2020-10-01 10:00 | disposition home or self-care (01) | DRG 750 ==
LOC: EMS 20:52 → 3EC 22:39 → 3EI 09-25 14:11
PROVIDERS: ADMIT Psychiatry & Neurology Child & Adolescent Psychiatry; ATTEND Psychiatry & Neurology Child & Adolescent Psychiatry
DX: F20.0 Paranoid schizophrenia (principal); F17.210 Nicotine dependence, cigarettes, uncomplicated; F14.90 Cocaine use, unspecified, uncomplicated; E87.6 Hypokalemia; E16.2 Hypoglycemia, unspecified; F10.10 Alcohol abuse, uncomplicated; D64.9 Anemia, unspecified; Z59.0 Homelessness; Z20.822 Contact with and (suspected) exposure to COVID-19; R45.851 Suicidal ideations; F41.9 Anxiety disorder, unspecified
CPT/HCPCS: 84132; 87426; 99285; G0480